=== PATIENT | female | born 1975 | race Caucasian/White ===

== ENCOUNTER 2021-06-20 15:38 | Emergency (ER) | payer OTHER, SELFPAY ==
[2021-06-20 15:46] VITALS: BP 139/82; PULSE 85; RESP 16; TEMP 36.2; O2SAT 99
--- NOTE | 2021-06-20 15:56 | ED.SKABFB ---
HPI - Skin/Abscess/Foreign Bdy General Chief complaint: Wound/Laceration Stated complaint: dog bite left hand Time Seen by Provider: 06/20/21 15:56 Source: patient Mode of arrival: ambulatory Limitations: no limitations History of Present Illness HPI narrative: Maricarmen Saba is a 45 yo female with a laceration across the top of the dorsum of her left hand from a dog bite that occurred this morning. That she was cut into the subcutaneous tissue but she is washed out really well here for a lack repair, antibiotic, and work note Related Data Home Medications Medication Instructions Recorded Confirmed citalopram 20 mg PO DAILY 06/20/21 06/20/21 famotidine 20 mg PO BID 06/20/21 06/20/21 levothyroxine 25 mcg PO DAILY 06/20/21 06/20/21 metoprolol succinate 25 mg PO DAILY 06/20/21 06/20/21 Allergies Allergy/AdvReac Type Severity Reaction Status Date / Time bacitracin Allergy Unknown Rash Verified 06/20/21 16:11 neomycin Allergy Unknown Rash Verified 06/20/21 16:11 nickel Allergy Unknown Other Verified 06/20/21 16:11 polymyxin B Allergy Unknown Rash Verified 06/20/21 16:11 shellfish derived AdvReac Unknown hives Verified 06/20/21 16:11 Review of Systems Review of Systems: CONSTITUTIONAL: Denies fever, chills, sweats. EYES: Denies visual changes, redness, discharge. ENT: Denies rhinorrhea, congestion, sore throat, otalgia. CARDIOVASCULAR: Denies chest pain, palpitations, edema. RESPIRATORY: Denies dyspnea, wheezing, cough GASTROINTESTINAL: Denies abdominal pain, nausea, vomiting, diarrhea. GENITOURINARY: Denies dysuria, hematuria, abnormal discharge SKIN: Denies rash , laceration from dog bite left dorsum of hand. NEUROLOGIC: Denies numbness, or focal weakness. PSYCHIATRIC: Denies anxiety or depression. [facility] Past Medical History Medical History Depression GERD (gastroesophageal reflux disease) HTN (hypertension) Family History Family History Other Hypertension Social History Social History (Updated 06/20/21 @ 16:12 by Afia Marrero CNP) Smoking packs per day: 1.0 Smoking cigarettes per day: 20.0 Smoking status: Current every day smoker Alcohol intake: current Exam Narrative: GENERAL: This is a well-nourished, well-developed patient, in mild distress. HEAD: normocephalic, atraumatic. EYES: Sclera clear/white. Vision is grossly intact. EARS: External ears normal, . Hearing grossly intact. NOSE: External nose normal without nasal discharge, nares without redness, no rhinorrhea. THROAT: Mucous membranes moist, NECK: Neck supple, CARDIOVASCULAR: Regular rate and rhythm without murmurs, gallops, or rubs. RESPIRATORY: Clear to auscultation. Breath sounds equal bilaterally. No wheezes, rales, or rhonchi. GASTROINTESTINAL: Abdomen soft, SKIN: warm, intact with no suspicious lesions or rash, good texture and turgor. Right dorsum of hand 3.5 cm laceration through subcutaneous tissue, controlled bleeding looks like an official dressing now NEURO: awake, alert, and oriented to person, place and time. There were no obvious focal neurologic abnormalities. Steady gait EXTREMITIES: Normal range of motion. BACK: Nontender without deformity Course Course Emergency Course: Patient came to [facility] with dog bite of left wrist Laceration cleaned and secured with Steri-Strips, started on antibiotics Does not need tetanus shot is have 1 last year Vital Signs Vital signs: Vital Signs Temperature 97.2 F L 06/20/21 15:46 Pulse Rate 85 06/20/21 15:46 Respiratory Rate 16 06/20/21 15:46 Blood Pressure 139/82 06/20/21 15:46 Pulse Oximetry 99 06/20/21 15:46 Temperature 97.2 F L 06/20/21 15:46 Pulse Rate 85 06/20/21 15:46 Respiratory Rate 16 06/20/21 15:46 Blood Pressure 139/82 06/20/21 15:46 Pulse Oximetry 99 06/20/21 15:46 MDM - Skin/Abscess/Foreign Bdy Differe
== END 2021-06-20 16:29 | disposition home or self-care (01) ==
PROVIDERS: Emergency Provider Nurse Practitioner; PCP Nurse Practitioner Family
DX: S61.412A Laceration without foreign body of left hand, initial encounter (principal); W54.0XXA Bitten by dog, initial encounter; F17.210 Nicotine dependence, cigarettes, uncomplicated; K21.9 Gastro-esophageal reflux disease without esophagitis; I10 Essential (primary) hypertension; F32.9 Major depressive disorder, single episode, unspecified
CPT/HCPCS: 99213; G0463

== ENCOUNTER 2021-11-22 16:02 | Emergency (ER) | payer OTHER, SELFPAY ==
[2021-11-22 16:19] VITALS: BP 109/71; PULSE 73; RESP 16; TEMP 36.9; O2SAT 98
--- NOTE | 2021-11-22 17:34 | ED.LOWEXIN ---
HPI - Extremity Injury (Lower) General Chief Complaint: Extremity Injury, Lower Stated Complaint: right knee pain Time Seen by Provider: 11/22/21 17:34 Source: patient History of Present Illness HPI Narrative: Patient here with chronic right knee pain. Patient states she aggravated her knee crawling around on the concrete for work couple days ago. Patient states she has missed work and needs a note to return to work. Related Data Home Medications Medication Instructions Recorded Confirmed citalopram 20 mg PO DAILY 06/20/21 11/22/21 levothyroxine 25 mcg PO DAILY 06/20/21 11/22/21 Allergies Allergy/AdvReac Type Severity Reaction Status Date / Time bacitracin Allergy Unknown Rash Verified 11/22/21 16:40 neomycin Allergy Unknown Rash Verified 11/22/21 16:40 nickel Allergy Unknown Other Verified 11/22/21 16:40 polymyxin B Allergy Unknown Rash Verified 11/22/21 16:40 shellfish derived AdvReac Unknown hives Verified 11/22/21 16:40 Review of Systems Review of Systems: CONSTITUTIONAL: Denies fever, chills, or sweats. EYES: Denies visual changes, redness, or discharge. ENT: Denies rhinorrhea, congestion, sore throat, or otalgia. CARDIOVASCULAR: Denies chest pain, palpitations, or edema. RESPIRATORY: Denies cough or dyspnea. GASTROINTESTINAL: Denies abdominal pain, nausea, vomiting, or diarrhea. GENITOURINARY: Denies dysuria or hematuria. SKIN: Denies rash or itching. MUSCULOSKELETAL: Denies back pain, joint pain, or myalgia. NEUROLOGIC: Denies headache, numbness, or weakness. PSYCHIATRIC: Denies anxiety or depression. Allergic/Immunologic: Comments: At time of signature, agree with nursing past medical, surgical, social and family history. There is no relevant family history pertinent to the presenting complaint [facility] Past Medical History Medical History Depression GERD (gastroesophageal reflux disease) HTN (hypertension) Family History Family History Other Hypertension Social History Social History (Updated 06/20/21 @ 16:12 by Afia Marrero CNP) Smoking packs per day: 1.0 Smoking cigarettes per day: 20.0 Smoking status: Current every day smoker Alcohol intake: current Exam Narrative: GENERAL: Well-appearing, well-nourished, and in no acute distress. HEAD: Normocephalic, atraumatic. EYES: PERRLA and EOMI. ENT: Nares clear, no rhinorrhea or epistaxis. Mucous membranes moist. NECK: Supple. CHEST: Clear to auscultation. No respiratory distress. HEART: Regular rate and rhythm. No murmur heard. Normal peripheral pulses. ABDOMEN: Soft, nontender, nondistended, normal active bowel sounds. EXTREMITIES: Normal range of motion. No edema. KNEE EXAM - SKIN INTACT. NO DEFORMITY. NO SIGNIFICANT SWELLING. NORMAL ROM, HAS FULL EXTENSION AND FLEXION. COMPARTMENTS SOFT. NO CALF TENDERNESS. NEGATIVE ANTERIOR, POSTERIOR DRAWER SIGNS ON TEST. NO CREPITUS. DP PULSE, NORMAL CAPILLARY REFILL. NEGATIVE HANSA'S. NEGATIVE BLESSING'S SKIN: Warm, dry, no rash. NEURO: No focal deficits. Alert and oriented x3. Alex Coma Scale Eye Opening: Spontaneous 4 Alex Coma Scale Motor: Obeys Commands 6 [place] Coma Scale Verbal: Oriented 5 [place] Coma Scale Total 15 Course Course Level of Care: Express Care Visit Vital Signs Vital signs: Vital Signs Temperature 36.9 C 11/22/21 16:19 Pulse Rate 73 11/22/21 16:19 Respiratory Rate 16 11/22/21 16:19 Blood Pressure 109/71 11/22/21 16:19 Pulse Oximetry 98 11/22/21 16:19 Temperature 36.9 C 11/22/21 16:19 Pulse Rate 73 11/22/21 16:19 Respiratory Rate 16 11/22/21 16:19 Blood Pressure 109/71 11/22/21 16:19 Pulse Oximetry 98 11/22/21 16:19 Critical dx considered and discussed with pt. Educated patient on red flag s/s and to go to ED if s/s occur. Discussed with pt when to return to Express Care or primary care provider. Pt aurelio guerrero
== END 2021-11-22 17:49 | disposition home or self-care (01) ==
PROVIDERS: Emergency Provider Nurse Practitioner Family; PCP Nurse Practitioner Family
DX: S80.01XA Contusion of right knee, initial encounter (principal); X50.3XXA Overexertion from repetitive movements, initial encounter; Y99.0 Civilian activity done for income or pay; K21.9 Gastro-esophageal reflux disease without esophagitis; I10 Essential (primary) hypertension; F32.A Depression, unspecified
CPT/HCPCS: 99212; G0463

== ENCOUNTER 2022-06-04 12:44 | Emergency (ER) | payer OTHER, SELFPAY ==
[2022-06-04 12:50] VITALS: BP 114/56; PULSE 100; RESP 24; TEMP 36.9; O2SAT 99
--- NOTE | 2022-06-04 12:59 | ED.EYEPROB ---
HPI - Eye Problem General Chief complaint: Eye Problems Stated complaint: Eye Swelling Time Seen by Provider: 06/04/22 12:59 Source: patient and RN notes reviewed History of Present Illness HPI Narrative: Patient is a 46-year-old female who presents the urgent care with complaints of right arm heaviness, bilateral eye irritation, and right knee pain. Patient states that on Monday she went to her orthopedic and got a new type of injection into the right knee . Patient states she has call their office and has a follow-up appointment on Monday. Patient states that after the injection she noticed the eye irritation and did have some facial swelling initially. Patient denies of any shortness of breath or difficulty breathing. Denies of difficulty swallowing. States that the arm heaviness started over the last 24 hours. Denies of any recent strenuous activity or injury. Denies any chest pain. Denies of shortness of breath. No other acute complaints. No acute distress noted. Patient aware of the plan of care. Some parts of this dictation were generated by voice recognition software and may contain typographical and/or grammatical inaccuracies. Related Data Home Medications Medication Instructions Recorded Confirmed citalopram 20 mg tablet 20 mg PO DAILY 06/20/21 11/22/21 levothyroxine 25 mcg tablet 25 mcg PO DAILY 06/20/21 11/22/21 Allergies Allergy/AdvReac Type Severity Reaction Status Date / Time bacitracin Allergy Unknown Rash Verified 06/04/22 13:02 neomycin Allergy Unknown Rash Verified 06/04/22 13:02 nickel Allergy Unknown Other Verified 06/04/22 13:02 polymyxin B Allergy Unknown Rash Verified 06/04/22 13:02 shellfish derived AdvReac Unknown hives Verified 06/04/22 13:02 Review of Systems Review of Systems: CONSTITUTIONAL: Denies fever, chills, or sweats. EYES: Reports of bilateral eye irritation ENT: Denies rhinorrhea, congestion, sore throat, or otalgia. CARDIOVASCULAR: Denies chest pain, palpitations, or edema. RESPIRATORY: Denies cough or dyspnea. GASTROINTESTINAL: Denies abdominal pain, nausea, vomiting, or diarrhea. GENITOURINARY: Denies dysuria or hematuria. SKIN: Denies rash or itching. MUSCULOSKELETAL: Reports of right arm heaviness and right knee pain NEUROLOGIC: Denies headache, numbness, or weakness. All other systems reviewed are negative, except as documented in HPI. [facility] Past Medical History Medical History Depression GERD (gastroesophageal reflux disease) HTN (hypertension) Family History Family History Other Hypertension Social History Social History (Updated 06/20/21 @ 16:12 by Afia Marrero CNP) Smoking packs per day: 1.0 Smoking cigarettes per day: 20.0 Smoking status: Current every day smoker Alcohol intake: current Comments At the time of my signature, I reviewed and agree with the nursing past medical, surgical, social, and family history. There is no relevant family history pertinent to the patient complaint. Exam Narrative: GENERAL: This is a well-nourished, well-developed patient. Appears anxious HEAD: normocephalic, atraumatic. EYES: PERRL. Sclera clear/white. Vision is grossly intact. EARS: External ears normal NOSE: External nose normal with no obvious nasal discharge, nares without redness, no rhinorrhea. THROAT: Mucous membranes moist, posterior pharynx clear. NECK: Neck supple, non-tender without lymphadenopathy CARDIOVASCULAR: Regular rate and rhythm without murmurs, gallops, or rubs. RESPIRATORY: Clear to auscultation. Breath sounds equal bilaterally. No wheezes, rales, or rhonchi. SKIN: Mild diaphoresis. Warm, intact with no suspicious lesions or rash, good texture and turgor. NEURO: awake, alert, and oriented to person, place and time. There were no obvious focal neurologic abnormalities. EXTREMITIES: No clubbing, cyanosis, or edema.
--- NOTE | 2022-06-04 13:19 | ECG_ITS ---
Measurements Intervals [place] Rate: 64 P: 33 MA: 189 QRS: -4 QRSD: 109 T: 14 QT: 419 QTc: 434 Interpretive Statements SINUS RHYTHM DELAYED PRECORDIAL R/S TRANSITION BORDERLINE ECG Electronically Signed On 06-04-2022 15:25:29 CDT by Barber Garcia D.O.
== END 2022-06-04 13:45 | disposition home or self-care (01) ==
PROVIDERS: Emergency Provider Nurse Practitioner Family; PCP Nurse Practitioner Family
DX: H57.89 Other specified disorders of eye and adnexa (principal); M79.601 Pain in right arm; G89.29 Other chronic pain; M25.561 Pain in right knee; F17.210 Nicotine dependence, cigarettes, uncomplicated; K21.9 Gastro-esophageal reflux disease without esophagitis; I10 Essential (primary) hypertension; F32.A Depression, unspecified
CPT/HCPCS: 93005; 99213; G0463

== ENCOUNTER 2023-04-13 15:32 | Emergency (ER) | payer BC, OTHER, SELFPAY ==
[2023-04-13 15:36] VITALS: BP 121/72; PULSE 70; RESP 20; TEMP 36.7; O2SAT 98
--- NOTE | 2023-04-13 15:39 | ED.NAVMDI ---
HPI - Nausea/Vomiting/Diarrhea General Chief complaint: Nausea/Vomiting/Diarrhea Stated complaint: nausea diarrhea Time Seen by Provider: 04/13/23 15:39 Source: patient and RN notes reviewed History of Present Illness HPI Narrative: Patient is a 47-year-old female presents to urgent care with complaints of nausea, vomiting and diarrhea. Patient states that it started Monday night and symptoms have resolved. Patient states that the last time she had any vomiting or diarrhea was yesterday. Denies any abdominal pain or fever. States that she believes she ?ate something that did not sit right?. Patient states her main concern is that she had to call off work for the last 3 days. No other acute complaints. Patient is aware of the plan of care. Some parts of this dictation were generated by voice recognition software and may contain typographical and/or grammatical inaccuracies. Related Data Home Medications Medication Instructions Recorded Confirmed citalopram 20 mg tablet 20 mg PO DAILY 06/20/21 06/04/22 levothyroxine 25 mcg tablet 25 mcg PO DAILY 06/20/21 06/04/22 Allergies Allergy/AdvReac Type Severity Reaction Status Date / Time bacitracin Allergy Unknown Rash Verified 06/04/22 13:02 neomycin Allergy Unknown Rash Verified 06/04/22 13:02 nickel Allergy Unknown Other Verified 06/04/22 13:02 polymyxin B Allergy Unknown Rash Verified 06/04/22 13:02 shellfish derived AdvReac Unknown hives Verified 06/04/22 13:02 Review of Systems Review of Systems: CONSTITUTIONAL: Denies fever, chills, or sweats. EYES: Denies visual changes, redness, or discharge. ENT: Denies rhinorrhea, congestion, sore throat, or otalgia. CARDIOVASCULAR: Denies chest pain, palpitations, or edema. RESPIRATORY: Denies cough or dyspnea. GASTROINTESTINAL: Reports of resolved nausea, vomiting or diarrhea GENITOURINARY: Denies dysuria or hematuria. SKIN: Denies rash or itching. MUSCULOSKELETAL: Denies back pain, joint pain, or myalgia. NEUROLOGIC: Denies headache, numbness, or weakness. All other systems reviewed are negative, except as documented in HPI. [facility] Past Medical History Medical History Depression GERD (gastroesophageal reflux disease) HTN (hypertension) Family History Family History Other Hypertension Social History Social History (Updated 06/20/21 @ 16:12 by Afia Marrero, [place]) Smoking packs per day: 1.0 Smoking cigarettes per day: 20.0 Smoking status: Current every day smoker Alcohol intake: current Comments At the time of my signature, I reviewed and agree with the nursing past medical, surgical, social, and family history. There is no relevant family history pertinent to the patient complaint. Exam Narrative: GENERAL: This is a well-nourished, well-developed patient, in no apparent distress. Very poor hygiene HEAD: normocephalic, atraumatic. EYES: PERRL. Sclera clear/white. Vision is grossly intact. EARS: External ears normal, NOSE: External nose normal with no obvious nasal discharge, nares without redness, no rhinorrhea. THROAT: Mucous membranes moist NECK: Neck supple GASTROINTESTINAL: Abdomen soft, non-tender, nondistended. Bowel sounds are hyperactive. No guarding. SKIN: warm, intact with no suspicious lesions or rash, good texture and turgor. NEURO: awake, alert, and oriented to person, place and time. There were no obvious focal neurologic abnormalities. EXTREMITIES: No clubbing, cyanosis, or edema. Course Course Level of Care: Express Care Visit Vital Signs Vital signs: Vital Signs Temperature 98.1 F 04/13/23 15:36 Pulse Rate 70 04/13/23 15:36 Respiratory Rate 20 04/13/23 15:36 Blood Pressure 121/72 04/13/23 15:36 Pulse Oximetry 98 04/13/23 15:36 Oxygen Delivery Room Air 04/13/23 15:36 Temperature 98.1 F 04/13/23 15:36 Pulse Rate 70 04/13/23
== END 2023-04-13 16:19 | disposition home or self-care (01) ==
PROVIDERS: Emergency Provider Nurse Practitioner Family; PCP Nurse Practitioner Family
DX: R11.2 Nausea with vomiting, unspecified (principal); R19.7 Diarrhea, unspecified; K21.9 Gastro-esophageal reflux disease without esophagitis; I10 Essential (primary) hypertension; F17.210 Nicotine dependence, cigarettes, uncomplicated; F32.A Depression, unspecified
CPT/HCPCS: 99211; G0463